=== PATIENT | female | born 1955 | race Caucasian/White ===

== ENCOUNTER 2023-04-19 09:43 | Inpatient (IN) | payer MEDICARE, MEDICAID ==
[~2023-04-19] VITALS: Ht 160 cm; Wt 61.8 kg
[2023-04-19] MEDS ORDERED: ALPR-707 PO (09:48)
[2023-04-19] MEDS ORDERED: GABA-1181 PO (09:48)
[2023-04-19 09:51] VITALS: O2SAT 95
[2023-04-19] MEDS ORDERED: FentaNYL CITRATE PF 100 MCG/2 ML VIAL IVP ONE (10:30)
[2023-04-19] MEDS ORDERED: CeFAZolin 1 GM/DEXTROSE 50 ML IV ONE (10:30)
[2023-04-19] MEDS ORDERED: DiphenhydrAMINE HCL 50 MG/ML VIAL IVP ONE (10:30)
[2023-04-19 11:04] LABS: BASOPHILS % (AUTO) 0.6 % (0.0-2.0); EOSINOPHILS % (AUTO) 1.4 % (1.0-6.0); HEMATOCRIT 45.1 % (36-46); LYMPHOCYTES # (AUTO) 3.6 K/uL (1.0-4.8); LYMPHOCYTES % (AUTO) 36.4 % (22.0-44.0); MEAN CORPUSCULAR HEMOGLOBIN 30.3 pg (26.0-34.0); MEAN CORPUSCULAR HGB CONC 33.3 G/dL (31.0-37.0); MEAN CORPUSCULAR VOLUME 91 fL (80-100); MONOCYTES # (AUTO) 0.5 K/uL (0.1-1.0); NEUTROPHILS # (AUTO) 5.7 K/uL (1.8-7.7); NEUTROPHILS % (AUTO) 56.6 % (40.0-70.0); PLATELET COUNT (AUTO) 277 K/uL (150-450); RED BLOOD CELL COUNT(AUTO) 4.95 MIL/uL (4.00-5.20)
[2023-04-19 11:13] LABS: COVID AG,FIA SOURCE NASAL SWAB
[2023-04-19 11:13] LABS: CALCIUM, TOTAL 9.2 mg/dL (8.8-10.5); CREATININE 1.01 mg/dL (0.60-1.30); POTASSIUM 3.7 mmol/L (3.5-5.1)
[2023-04-19 11:25] LABS: ALBUMIN 3.5 g/dL (3.4-5.0); BILIRUBIN,TOTAL 0.5 mg/dL (0.1-1.0); TOTAL PROTEIN, SERUM 7.7 g/dL (6.4-8.2)
[2023-04-19 11:42] LABS: SARS-COV2 (COVID) ANTIGEN,FIA Negative (Negative)
[2023-04-19] MEDS ORDERED: GENTAMICIN 100 MG/NACL ISO-OSM 50 ML IV ONE (13:15)
[2023-04-19] MEDS ORDERED: MAGNESIUM HYDROXIDE SUSPENSION 30 ML UDCUP PO PRN (14:15)
[2023-04-19] MEDS ORDERED: ONDANSETRON HCL 4 MG/2 ML VIAL IVP PRN (14:15)
[2023-04-19] MEDS ORDERED: MORPHINE SULFATE 2 MG/ML SYRINGE IVP PRN (14:15)
[2023-04-19] MEDS ORDERED: HYDROCODONE/ACETAMINOPHEN 5-325 MG TABLET PO PRN ×2 (14:15→18:15)
[2023-04-19] MEDS ORDERED: ZOLPIDEM TARTRATE 5 MG TABLET PO PRN (14:15)
[2023-04-19] MEDS ORDERED: ACETAMINOPHEN 325 MG TABLET PO PRN (14:15)
[2023-04-19] MEDS ORDERED: BISACODYL 10 MG RECTAL RECTAL SUPPOSITORY PR PRN (14:15)
[2023-04-19 14:30] VITALS: BP 139/67; PULSE 109; RESP 18; TEMP 98
[2023-04-19] MEDS ORDERED: RINGERS SOLUTION,LACTATED 1,000 ML IV ONE (15:35)
[2023-04-19] MEDS: HEPARIN SODIUM,PORCINE 5,000 UNITS/ML VIAL SQ SCH (16:00)
[2023-04-19] MEDS ORDERED: BUPIVACAINE HCL/PF 0.25% 30 ML VIAL ONE (16:59)
[2023-04-19] MEDS ORDERED: BUPIVACAINE 0.25%/EPI 1:200,000/PF 10 ML VIAL ONE (17:01)
[2023-04-19] MEDS ORDERED: FentaNYL CITRATE PF 100 MCG/2 ML VIAL ONE (17:54)
[2023-04-19] MEDS: FentaNYL CITRATE PF 100 MCG/2 ML VIAL IVP PRN ×2 (17:55→18:26)
[2023-04-19] MEDS ORDERED: HYDROmorphone HCL 2 MG/ML SYRINGE IVP PRN ×3 (18:00→18:15)
[2023-04-19] MEDS: OXYGEN THERAPY IH SCH (20:00)
[2023-04-19] MEDS: DOCUSATE SODIUM 100 MG CAPSULE PO SCH (20:02)
[2023-04-19] MEDS: GABAPENTIN 300 MG CAPSULE PO SCH (20:02)
[2023-04-19 20:28] VITALS: BP 147/86; PULSE 101; RESP 20; TEMP 98.3
[2023-04-20] MEDS: HEPARIN SODIUM,PORCINE 5,000 UNITS/ML VIAL SQ SCH ×4 (00:06→23:34)
[2023-04-20] MEDS: CeFAZolin 2 GM/DEXTROSE 50 ML IV SCH ×3 (00:06→16:19)
[2023-04-20] MEDS: ALPRAZolam 0.5 MG TABLET PO PRN ×2 (00:18→23:33)
[2023-04-20] MEDS ORDERED: LIDOCAINE/PF 2% 5 ML VIAL IM ONE (01:21)
[2023-04-20] MEDS ORDERED: SUGAMMADEX SODIUM 200 MG/2 ML VIAL IVP ONE (01:21)
[2023-04-20] MEDS ORDERED: ACETAMINOPHEN/ISO-OSM 1000 MG/100 ML BOTTLE IV ONE (01:21)
[2023-04-20] MEDS ORDERED: MIDAZOLAM HCL 2 MG/2 ML VIAL IVP ONE (01:21)
[2023-04-20] MEDS ORDERED: CeFAZolin SODIUM 1 GM VIAL IVP ONE (01:21)
[2023-04-20] MEDS ORDERED: DEXAMETHASONE SOD PHOS 4 MG/ML VIAL IVP ONE (01:21)
[2023-04-20] MEDS ORDERED: ONDANSETRON HCL 4 MG/2 ML VIAL IVP ONE (01:21)
[2023-04-20] MEDS ORDERED: FentaNYL CITRATE PF 100 MCG/2 ML VIAL IVP ONE (01:21)
[2023-04-20] MEDS ORDERED: PROPOFOL 1% 20 ML VIAL IVP ONE (01:21)
[2023-04-20] MEDS ORDERED: ROCURONIUM BROMIDE 10 MG/ML 5 ML VIAL IVP ONE (01:21)
[2023-04-20 07:00] LABS: BASOPHILS % (AUTO) 0.3 % (0.0-2.0); EOSINOPHILS % (AUTO) 0 % (1.0-6.0); HEMATOCRIT 40.9 % (36-46); HEMOGLOBIN 13.4 g/dL (12.0-16.0); LYMPHOCYTES # (AUTO) 2.5 K/uL (1.0-4.8); MEAN CORPUSCULAR HEMOGLOBIN 30.1 pg (26.0-34.0); MEAN CORPUSCULAR HGB CONC 32.8 G/dL (31.0-37.0); MEAN CORPUSCULAR VOLUME 92 fL (80-100); MONOCYTES # (AUTO) 1.1 K/uL (0.1-1.0); MONOCYTES % (AUTO) 6.7 % (2.0-9.0); NEUTROPHILS # (AUTO) 13.1 K/uL (1.8-7.7); PLATELET COUNT (AUTO) 273 K/uL (150-450); RED BLOOD CELL COUNT(AUTO) 4.46 MIL/uL (4.00-5.20); WHITE BLOOD COUNT (AUTO) 16.8 K/uL (4.5-11.0)
[2023-04-20 07:16] LABS: ANION GAP 8 mmol/L (8-16); CALCIUM, TOTAL 8.8 mg/dL (8.8-10.5); CARBON DIOXIDE 25 mmol/L (22-29); CHLORIDE 102 mmol/L (98-107); CREATININE 0.86 mg/dL (0.60-1.30); GLOMERULAR FILTR. RATE CALC > 60 mL/min (>60); GLUCOSE,RANDOM 129 mg/dL (70-110); POTASSIUM 4.5 mmol/L (3.5-5.1); SODIUM SERUM 135 mmol/L (136-145); UREA NITROGEN, BLOOD 15 mg/dL (7-18)
[2023-04-20] MEDS: OXYGEN THERAPY IH SCH ×2 (07:25→20:00)
[2023-04-20] MEDS: PANTOPRAZOLE SODIUM 40 MG DR TABLET PO SCH (07:30)
[2023-04-20] MEDS: GABAPENTIN 300 MG CAPSULE PO SCH ×2 (07:30→20:06)
[2023-04-20] MEDS: DOCUSATE SODIUM 100 MG CAPSULE PO SCH ×2 (07:30→20:06)
[2023-04-20 08:17] VITALS: BP 126/60; PULSE 83; RESP 20; TEMP 98.3
[2023-04-20] MEDS: HYDROCODONE/ACETAMINOPHEN 5-325 MG TABLET PO PRN ×2 (09:15→16:26)
[2023-04-20 16:24] VITALS: BP 138/75; PULSE 86; RESP 20; TEMP 98.5
[2023-04-20 20:00] VITALS: BP 140/82; PULSE 95; RESP 20; TEMP 98.1
[2023-04-21 04:47] VITALS: BP 141/78; PULSE 86; RESP 20; TEMP 97.9
[2023-04-21 06:56] LABS: BASOPHILS % (AUTO) 0.5 % (0.0-2.0); EOSINOPHILS % (AUTO) 0.9 % (1.0-6.0); LYMPHOCYTES # (AUTO) 7.2 K/uL (1.0-4.8); LYMPHOCYTES % (AUTO) 47.4 % (22.0-44.0); MEAN CORPUSCULAR HEMOGLOBIN 30.4 pg (26.0-34.0); MEAN CORPUSCULAR HGB CONC 33.4 G/dL (31.0-37.0); MEAN CORPUSCULAR VOLUME 91 fL (80-100); MONOCYTES # (AUTO) 1.1 K/uL (0.1-1.0); MONOCYTES % (AUTO) 7.2 % (2.0-9.0); NEUTROPHILS # (AUTO) 6.7 K/uL (1.8-7.7); PLATELET COUNT (AUTO) 230 K/uL (150-450); WHITE BLOOD COUNT (AUTO) 15.2 K/uL (4.5-11.0)
[2023-04-21 07:15] LABS: ANION GAP 7 mmol/L (8-16); CALCIUM, TOTAL 8.7 mg/dL (8.8-10.5); CARBON DIOXIDE 27 mmol/L (22-29); CHLORIDE 104 mmol/L (98-107); CREATININE 0.81 mg/dL (0.60-1.30); GLOMERULAR FILTR. RATE CALC > 60 mL/min (>60); GLUCOSE,RANDOM 98 mg/dL (70-110); POTASSIUM 3.9 mmol/L (3.5-5.1); SODIUM SERUM 138 mmol/L (136-145); UREA NITROGEN, BLOOD 13 mg/dL (7-18)
[2023-04-21] MEDS: OXYGEN THERAPY IH SCH (08:00)
[2023-04-21] MEDS: HEPARIN SODIUM,PORCINE 5,000 UNITS/ML VIAL SQ SCH (08:00)
[2023-04-21] MEDS: DOCUSATE SODIUM 100 MG CAPSULE PO SCH (08:47)
[2023-04-21] MEDS: PANTOPRAZOLE SODIUM 40 MG DR TABLET PO SCH (08:47)
[2023-04-21] MEDS: GABAPENTIN 300 MG CAPSULE PO SCH (08:48)
[2023-04-21 09:01] VITALS: BP 145/92; PULSE 93; RESP 20; TEMP 98.4
[2023-04-21] MEDS ORDERED: CLIN300C58 PO (11:42)
[2023-04-21] MEDS ORDERED: CIPR500T10 PO (11:42)
[2023-04-21] MEDS ORDERED: ACET-3560 PO (11:42)
== END 2023-04-21 13:10 | disposition home or self-care (01) | DRG 512 ==
LOC: EMS 09:44 → 6S 15:36
PROVIDERS: ADMIT Internal Medicine; ATTEND Internal Medicine
PROC: 0PBL0ZZ Excision of Left Ulna, Open Approach (ICD-10-PCS; 2023-04-19)
PROC: 0PS Upper Bones, Reposition (ICD-10-PCS; 2023-04-19)
PROC: 0PSJ04Z Reposition Left Radius with Internal Fixation Device, Open Approach (ICD-10-PCS; principal; 2023-04-19 16:00)
DX: S52.572A Other intraarticular fracture of lower end of left radius, initial encounter for closed fracture (principal); S52.612B Displaced fracture of left ulna styloid process, initial encounter for open fracture type I or II; D72.829 Elevated white blood cell count, unspecified; F41.9 Anxiety disorder, unspecified; M81.0 Age-related osteoporosis without current pathological fracture; R73.9 Hyperglycemia, unspecified; Z20.822 Contact with and (suspected) exposure to COVID-19; W18.39XA Other fall on same level, initial encounter; Z79.899 Other long term (current) drug therapy; Z88.0 Allergy status to penicillin; Y93.89 Activity, other specified; Y92.89 Other specified places as the place of occurrence of the external cause; Y99.8 Other external cause status
CPT/HCPCS: 71045; 80048; 80053; 83036; 85025; 87081; 93005; 97161; 97166; 97535; 99285; J0131; J0690; J1100; J1200; J1580; J1644; J2250; J2405; J2704; J3010; J3490; J7120; Q9967; 36415-L1; 36415-TC